=== PATIENT | male | born 2000 | race Caucasian/White ===

== ENCOUNTER 2024-04-26 19:48 | Emergency (ER) | payer OTHER, SELFPAY ==
--- NOTE | ~2024-04-26 | XR_ITS ---
EXAMINATION: XR CHEST CLINICAL INFORMATION: Cough for weeks. COMPARISON: None available. TECHNIQUE: 2 views of the chest were obtained. FINDINGS: Normal appearance of the cardiomediastinal structures. No effusions or pneumothoraces. No focal pulmonary consolidation. Normal pattern of pulmonary vasculature. No suspicious skeletal lesions identified. XR/XR chest 2V IMPRESSION: No cardiopulmonary abnormalities. Lungs clear. Electronically signed by: Lance Armstrong MD 04/27/2024 12:02 AM LUCIO
[2024-04-26 19:57] VITALS: BP 105/56; PULSE 74; RESP 18; TEMP 36.3; O2SAT 98; BMI 19.0
--- NOTE | 2024-04-26 20:00 | ED.URI ---
HPI - URI/Sore Throat General Chief Complaint: Upper Respiratory Symptoms Stated Complaint: cough Time Seen by Provider: 04/27/24 04:01 Source: patient Mode of arrival: ambulatory Limitations: no limitations History of Present Illness ED Provider: RUDY DELGADO Narrative: 24 yo male with no sig PMH just completed zpack from urgent care - still has cough, mucous subjective fevers. He does smoke. Has used albuterol inhaler with some relief. No sick contacts, travel, exposures or any other reason to get ill per his reports. He came in as he thought he has pneumonia. MD elicited complaint: fever and cough Onset (ago): week(s) (2) Consistency: intermittent Severity: moderate Description of mucous: yellow Able to tolerate fluids by mouth: Yes Exacerbating factors: other (coughing) Relieving factors: nothing Associated symptoms: fever, chills, cough and shortness of breath Treatments prior to arrival: antibiotics Related Data Previous Rx's ?Medication ?Instructions ?Recorded amoxicillin 875 mg-potassium 1 tab PO BID #13 tabs 04/27/24 clavulanate 125 mg tablet prednisone 20 mg tablet 40 mg (2 x 20 mg) PO DAILY 4 days 04/27/24 #8 tabs Allergies Allergy/AdvReac Type Severity Reaction Status Date / Time No Known Allergies Allergy Verified 04/26/24 19:58 [No Known Allergies*] Review of Systems Review of Systems: Constitutional : pos Fever, pos Chills ENT/Mouth : No Hoarseness, No sore throat, No Rhinorrhea Eyes: No Redness, No Discharge, No Vision Changes Cardiovascular : No Chest Pain, positive SOB, positive Dyspnea on Exertion, No Edema Respiratory : positive Cough, No Sputum, positive Wheezing, Gastrointestinal : No Nausea, No Vomiting, No Diarrhea, No abdominal Pain Genitourinary : No Dysuria, No Hematuria Musculoskeletal : No joint pain, No Myalgias Skin : No rash Neuro : No Weakness, No Numbness, No Headache Psych : No anxiety, depression All other systems reviewed and are negative [facility] Past Medical History Medical History No pertinent past medical history Social History Social History (Updated 04/27/24 @ 04:47 by Nabila Brar DO) Patient Tobacco Use Status: Current everyday Tobacco user Physical Exam Vital Signs: Vital Signs: Last Vital Signs Temp 98.4 F 04/27/24 02:19 Pulse 57 04/27/24 02:19 Resp 16 04/27/24 02:19 BP 119/67 04/27/24 02:19 Pulse Ox 99 04/27/24 02:19 O2 Del Method Room Air 04/27/24 02:19 BMI result Body Mass Index 19.0 Appearance: Alert. Oriented X3. No acute distress. Eyes: Pupils equal, round and reactive to light. ENT: Pharynx normal. Neck: Normal inspection. Neck supple. CVS: Normal heart rate and rhythm. Pulses normal. Respiratory: No respiratory distress. Breath sounds mild anterior rhonchi Abdomen: Soft and nontender. Skin: Skin warm and dry. Normal skin color. Normal skin turgor. Extremities: No lower extremity edema. No calf ttp Neuro: Oriented X 3. No motor deficit. No sensory deficit. Course Course Course Narrative: This is a Rapid Medical Examination (RME) performed by Shad Bliss PA-C in triage. Full HPI, ROS, assessment and treatment plan per primary provider in the Main ED. 24 yo male here for eval of cough x weeks. seen at last week, discharged w/ zpak which he completed 2-3 days ago. reports continued symptoms despite treatment. reports rib pain on deep inspiration d/t coughing. intermittent fever. Plan: viral swabs, CXR Medical Decision Making Medical Decision Making [facility] Narrative: 24 yo male with no sig PMH here with c/o URI symptoms cough fevers wheezing with no response to azithromycin at this time will obtain labs, CXR and likely treat for bronchitis with augmentin and prednisone. He has no resp distress and still has inhaler at home Differential Diagnosis Differential Diagnoses: The differential diagnosis associated with the presentation includes bronchitis, pneumonia Admission/Observation Consideration of admission/observation: Escalation of care including admission/observation considered not toxic well hydrated Lab Data [facility] Lab Attestation statement: I reviewed the patient's lab results. Labs: Lab Results 04/26/24 Range/Units 20:29 Influenza Type A (PCR) NEGATIVE (Negative) Influenza Type B (PCR) NEGATIVE (Negative) RSV RNA Qual (PCR) NEGATIVE (Negative) SARS-CoV-2 RNA (RT-PCR) NEGATIVE (Negative) Independent Interpretation I performed an independent interpretation of an: Plain X-Ray (normal ) Radiology Impression Discussion of test interpretation with radiology: I have reviewed the radiologist's reading. Prescription Management I considered prescription management with: Antibiotic Discharge Plan Discharge Clinical Impression: Bronchitis Patient Disposition: Home, Self-Care Instructions: Acute Bronchitis (ED) Additional Instructions: chest xray normal swabs negative continue to use albuterol inhaler return for any worsening symptoms, pain, difficulty breathing, unable to take medications or any other concerns On amoxicillin-clavulanate, softer bowel movements are to be expected. Call your provider if you move your bowels more than 4 times a day, your bowel movements are almost all liquid, or you get a rash.? Prescriptions: New amoxicillin-pot clavulanate 875-125 mg tablet 1 tab PO BID Qty: 13 0RF prednisone 20 mg tablet 40 mg PO DAILY 4 Days Qty: 8 0RF Print Language: Chadian
[2024-04-26 21:22] LABS: Influenza A PCR NEGATIVE (Negative); Influenza B PCR NEGATIVE (Negative); Resp Syncy Virus RNA Qual PCR NEGATIVE (Negative); SARS COV2 PCR INHOUSE NEGATIVE (Negative)
[2024-04-27 02:19] VITALS: BP 119/67; PULSE 57; RESP 16; TEMP 36.9; O2SAT 99
[2024-04-27] MEDS: predniSONE 20 MG TABLET 40 MG PO (05:03)
[2024-04-27] MEDS: Amoxicillin/Potassium Clav 875 MG TABLET PO (05:03)
[2024-04-27 05:13] VITALS: BP 119/67; PULSE 57; RESP 16; TEMP 36.9; O2SAT 99
== END 2024-04-27 05:14 | disposition home or self-care (01) ==
PROVIDERS: Physician Assistant Medical; Emergency Provider Emergency Medicine
DX: J40 Bronchitis, not specified as acute or chronic (principal); R05.9 Cough, unspecified; Z03.818 Encounter for observation for suspected exposure to other biological agents ruled out
CPT/HCPCS: 0241U; 71046; 99282; 99283

== ENCOUNTER 2024-10-09 20:16 | Emergency (ER) | payer OTHER, SELFPAY ==
--- NOTE | ~2024-10-09 | XR_ITS ---
CLINICAL HISTORY: tenderness deformity over 5th metacarpal --- Additional Notes or Special Instructio ns: punched wall 4 view right hand Comparison: None Findings: There is a transverse mildly comminuted fracture through the distal shaft of the 5th metacarpal. There is significant volar angulation of the distal fragment measuring 35 degrees. Fracture is nondisplaced. No significant arthritic change. No erosions. No radiopaque foreign body. IMPRESSION: Transverse, angulated fracture through the distal shaft of the 5th metacarpal. This document has been electronically signed by: Carlito Perez MD on 10/09/2024 21:06:18
[2024-10-09 20:19] VITALS: BP 116/72; PULSE 98; RESP 16; TEMP 37.2; O2SAT 95; BMI 19.7
--- NOTE | 2024-10-09 20:19 | ED.GENADULT ---
HPI - General Adult General Chief complaint: Extremity Injury, Upper Stated complaint: right hand inj Time Seen by Provider: 10/09/24 22:01 Source: patient Mode of arrival: ambulatory Limitations: no limitations History of Present Illness ED Provider: Janeth Bone NP HPI narrative: Patient is a 24-year-old male who presents emergency department for evaluation. He is right-hand dominant. He got into a verbal altercation with a co-worker and ultimately punched a wall with his right hand. For the resultant pain in swelling over the 4th and 5th metacarpal. There is a small superficial laceration over the 5th MCP. No active bleeding. No use of anticoagulants or known coagulation disorders. Denies numbness or tingling. Reports last tetanus vaccination likely greater than 5 years. Related Data Previous Rx's ?Medication ?Instructions ?Recorded amoxicillin 875 mg-potassium 1 tab PO BID #13 tabs 04/27/24 clavulanate 125 mg tablet prednisone 20 mg tablet 40 mg (2 x 20 mg) PO DAILY 4 days 04/27/24 #8 tabs Allergies Allergy/AdvReac Type Severity Reaction Status Date / Time No Known Allergies Allergy Verified 10/09/24 20:24 [No Known Allergies*] Review of Systems Review of Systems: Yes all other systems are reviewed and are negative PMFSH Past Medical History Attestation statement: The following information was validated with the patient. Source: old records reviewed Medical History No pertinent past medical history Social History Social History (Updated 04/27/24 @ 04:47 by Nabila Brar DO) Patient Tobacco Use Status: Current everyday Tobacco user Smoked in Last 30 Days: Yes Use of substances other than those prescribed or required for medical reasons: Yes Substance Use Type: Marijuana Advance Directives: No Advance Directives Information Provided: Yes Do you have a plan to hurt others: No Plan Physical Exam ED Vital Signs: Vital Signs - 24 hr 10/09/24 20:19 Temperature 98.9 F Pulse Rate 98 Respiratory Rate 16 Blood Pressure 116/72 Pulse Oximetry 95 Oxygen Delivery Method Room Air BMI result Body Mass Index 19.7 Appearance: Alert.?Oriented to person, place and time. No acute distress.?Normal affect. CVS: Heart sounds normal. Normal heart rate and rhythm.? Pulses normal.?? Respiratory: No respiratory distress.? Lung sounds clear to auscultation bilaterally?? Abdomen: Soft and non-tender. Normoactive bowel sounds. Skin: Skin warm and dry.? Normal skin color.? Extremities: Localized swelling and deformity over right 5th MCP tenderness upon palpation. 2.5 cm superficial laceration over the MCP Neuro: Moves all extremities spontaneously. Sensation intact bilaterally. Ambulates with normal steady gait. Course Course Course Narrative: This is a rapid medical exam performed by Sarita Lei NP: Additional HPI, ROS, PE not included below will be deferred to primary provider. Patient is a 24-year-old right hand dominant male presenting with complaint of right hand pain after getting into an argument with a co-worker and punching a wall. Denies numbness/tingling. Denies wrist pain. Tenderness and deformity over 5th metacarpal. Unknown last Tdap. Small laceration over 5th MCP joint. 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 Plan: xray Medications Administered Discontinued Medications Generic Name Dose Route Start Last Admin Trade Name Freq PRN Reason Stop Dose Admin Bacitracin 1 appl 10/09/24 22:26 10/09/24 22:36 Bacitracin Oint 0.9 Gm Packet TOPICAL 10/09/24 22:27 1 appl ONCE ONE Administration Protocol Diphtheria/Tetanus/Acell Pertussis 0.5 ml 10/09/24 20:21 10/09/24 22:10 Diphth,Pertus(Acell),Tet Adult 0.5 Ml Syringe IM 10/09/24 20:22 0.5 ml .ONCE ONE Administration Cefazolin Sodium/Dextrose 2 gm in 50 mls @ 100 mls/hr 10/09/24 22:21 10/09/24 23:06 Ancef IV 10/09/24 22:50 Infused ONCE ONE Infusion Procedures Orthopedic Splinting/Casting Injury #1: Side: left Upper Extremity Injury Location: hand Upper Extremity Immobilizer: ulnar gutter Medical Decision Making Medical Decision Making MDM Narrative: 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 Has localized swelling over the dorsum of the hand, deformity and ecchymosis, superficial laceration which was cleansed with normal saline bacitracin applied and a clean dry dressing. XR revealing fracture to the distal 5th metacarpal. Reviewed this x-ray imaging with my attending Dr. Saleh, advises based on fracture presentation would not attempt manual reduction, recommend splinting and outpatient follow-up. He will receive a dose of IV cefazolin in the emergency department, will update his tetanus vaccination. Was placed in a an ulnar gutter splint remained neurovascularly intact distally after application. All questions were answered. Reviewed outpatient follow-up with Orthopedics, worrisome signs and symptoms that would warrant re-evaluation in the emergency department. Stable for discharge Differential Diagnosis Differential Diagnoses: The differential diagnosis associated with the presentation includes (Fracture, dislocation, sprain) Admission/Observation Consideration of admission/observation: Escalation of care including admission/observation considered Independent Interpretation I performed an independent interpretation of an: Plain X-Ray (See narrative above) Radiology Impression Discussion of test interpretation with radiology: I have reviewed the radiologist's reading. Radiologist Impression: 4 view right hand Comparison: None Findings: There is a transverse mildly comminuted fracture through the distal shaft of the 5th metacarpal. There is significant volar angulation of the distal fragment measuring 35 degrees. Fracture is nondisplaced. No significant arthritic change. No erosions. No radiopaque foreign body. IMPRESSION: Transverse, angulated fracture through the distal shaft of the 5th metacarpal. External Record Review External record reviewed: Outpatient record Prescription Management I considered prescription management with: Pain Medication Discharge Plan Discharge Clinical Impression: Open fracture of metacarpal bone of right hand Qualifiers: Encounter type: initial encounter Metacarpal bone: fifth Metacarpal location: neck Patient Disposition: Home, Self-Care Instructions: Hand Fracture (ED), R.I.C.E. Treatment (ED) Additional Instructions: You can take ibuprofen 200 mg, 3 tablets (600mg) every 6-8 hours as needed for pain, in addition to Tylenol 500 mg, 2 tablets (1,000mg) every 4-6 hours as needed for pain, but not to exceed 3 doses daily (3,000mg).? Be sure to apply ice for 10-15 minutes 4-6 times daily Contact the orthopedic office first thing tomorrow morning to arrange for a follow-up visit. The splint must remain in place at all times it can not get wet. If it feels as though there is significant swelling, pressure tightness beneath the splint, you should seek re-evaluation. If you noticed discoloration to the toes numbness tingling or cold sensation you should seek re-evaluation. Prescriptions: No Action amoxicillin-pot clavulanate 875-125 mg tablet 1 tab PO BID Qty: 13 0RF prednisone 20 mg tablet 40 mg PO DAILY 4 Days Qty: 8 0RF Referrals: Kathie Montanez MD [Physician] - Print Language: Barbadian
--- OUTSIDE RECORDS SUMMARY | 2024-10-09 21:47 | XMS_ITS | Clinical Summary ---
Author Organization [facility] Address [address] [place] [id number] Phone Care Team Providers Care Drum Sander Setter Name Role Phone Unavailable Primary Care Provider Unavailabl e Immunizations Immunization Administration Dates Next Due DTaP 02/09/2003, 9,1998, 999,1998 Hep B, ped/adol 1998,1998,1998 Hib (PRP-T) 05/29/1999, 9,1998, 998 IPV 02/09/2003, 9,1998, 998 Influenza, injectable, quadrivalent 02/20/2010 MMR 07/04/2002,03/14/1999 Meningococcal Conj (Menactra) MCV4P 01/01/2015,0 02/20/2010 Tdap 02/20/2010 Varicella 03/28/2008,10/13/1999 Family History Relation Name Status Comments Father Alive prescription dr quiñonez abuse age: 42 Father's Brother Alive Father's Sister Alive healthy X 1 Maternal Grandfather CAD [place] diagnosed with HEART DISEASE NOS Maternal Grandmother Alive healthy Mother Alive healthy age: 50 Other Alive Siblings: healt hy diagnosed with Asthma, unspecified Paternal Grandfather esophag eal [place] diagnosed with MALIGNANT NEOPLASM NOS Paternal Grandmother Alive Social History Tobacco Use Types Packs/Day Years Used Date Smoking Tobacco: Never Assessed Sex and Gender Information Value Date Recorded Sex Assigned at Not on file Legal Sex Male 6:09 PM EDT Gender Identity Not on file Sexual Orientation Not on file Last Filed Vital Signs Vital Sign Reading Time Taken Comments Blood Pressure 128/76 08/06/2016 12:00 AM EST Pulse 64 10/15/2014 12:00 AM EDT Temperature 37 ??C (98.6 ??F) 08/06/2016 12:00 AM EST Respiratory Rate - - Oxygen Saturation 98% 10/15/2014 12:00 AM EDT Inhaled Oxygen Concentration - - Weight 63.5 kg (140 lb) 08/06/2016 12:00 AM EST Height 179.1 cm (5' 10.5 ) 08/06/2016 12:[address] Body Mass Index 19.8 08/06/2016 12:00 AM EST Plan of Treatment Health Maintenance Due Date Last Done Comments HPV Vaccines (1 - Male 3-dose series) 2013 DTaP,Tdap,and Td Vaccines (7 - Td or Tdap) 02/21/2020 02/20/2010, 02/09/2003, 05/29/1999, Additional history exists Influenza Vaccines (#1) 2024 02/20/2010 COVID-19 Vaccine ( season) 2024 Hepatitis B Vaccines Completed 1998, 1998, 1998 HIB Vaccines Completed 05/29/1999, 02/1999, 1998, Additional history exists MMR Vaccines Completed 07/04/2002, 03/14/1999 IPV Vaccines Completed 02/09/2003, 02/20, 1998, Additional history exists Varicella Vaccines Completed 03/28/2008, 10/13/1999 Meningococcal Vaccine Completed 01/01/2015, 010 Hepatitis A Vaccines Aged Out No long er eligible based on patient's age to complete this topic Men B Vaccine Aged Out No longer elig ible based on patient's age to complete this topic Pneumococcal Vaccine Aged Out No long er eligible based on patient's age to complete this topic
--- NOTE | 2024-10-09 21:58 | PC.NURSE ---
This RN assumed pt care @ 2139 Pt a&ox4, no signs of distress Pt reports he punched a wall, has pain around 4/5 when he moves his right hand Plan of care ongoing
[2024-10-09] MEDS: Diphth,Pertus(ACell),Tet Adult 0.5 ML SYRINGE IM (22:10)
--- NOTE | 2024-10-09 22:13 | PC.NURSE ---
Pt medicated per [facility] Plan of care ongoing.
[2024-10-09] MEDS: Bacitracin Oint 0.9 GM PACKET 1 APPL TOPICAL (22:36)
[2024-10-09] MEDS: ceFAZolin Sodium/Dextrose,Iso 2 GM/50 ML PIGGYBACK IV (22:36)
--- NOTE | 2024-10-09 22:39 | PC.NURSE ---
Pt medicated per [facility] Plan of care ongoing.
[2024-10-10 00:27] VITALS: BP 115/84; PULSE 69; RESP 18; TEMP 36.6; O2SAT 98
== END 2024-10-10 00:30 | disposition home or self-care (01) ==
PROVIDERS: Emergency Provider Emergency Medicine Emergency Medical Services
DX: S62.336A Displaced fracture of neck of fifth metacarpal bone, right hand, initial encounter for closed fracture (principal); S61.216A Laceration without foreign body of right little finger without damage to nail, initial encounter; M79.641 Pain in right hand; X79.XXXA Intentional self-harm by blunt object, initial encounter; Y93.9 Activity, unspecified; Y92.9 Unspecified place or not applicable; Y99.8 Other external cause status; Z23 Encounter for immunization; F17.210 Nicotine dependence, cigarettes, uncomplicated
CPT/HCPCS: 29130; 73130; 90471; 90715; 96365; 99284; J0690

== ENCOUNTER → 2024-10-09 20:21 | Outpatient (BNV) | payer SELFPAY | PROVIDERS: Visit Provider Radiology Diagnostic Radiology | DX: S62.326A Displaced fracture of shaft of fifth metacarpal bone, right hand, initial encounter for closed fracture (principal) | CPT/HCPCS: 73130 ==

== ENCOUNTER 2024-10-11 | Outpatient (REF) | payer OTHER, SELFPAY ==
--- NOTE | ~2024-10-11 | XR_ITS ---
EXAMINATION: XR HAND, RIGHT CLINICAL INFORMATION: M79.641 - Pain in right hand COMPARISON: October 09, 2024. TECHNIQUE: PA, lateral, and oblique views of the right hand. FINDINGS: Comminuted the fracture with volar angulation distal diaphysis of the fifth metacarpal. No callus formation. Carpal bones are intact with normal alignment. Phalanges are intact with normal alignment. Metacarpals from the first to the fourth are intact. Distal radius and ulna are intact. XR/XR hand RT min 3V IMPRESSION: Nonhealing acute to subacute comminuted volar angulated fracture distal fifth metacarpal. Electronically signed by: Edward Fink MD 10/12/2024 08:56 AM EDT
--- OUTSIDE RECORDS SUMMARY | 2024-12-15 14:31 | XMS_ITS | Encounter Summary ---
Author Organization [facility] Address [address] [place] [id number] Phone Care Team Providers Care Teacher Advisor Name Role Phone Anthony Rodney MD Primary Care Provider [phone] Encounter Details Date Type Department Care Team (Late st Contact Info) Description 11/07/2017 Conversion Encounter [facility] [address] [place] [address] Anthony Rodney MD [address] [place] [address] Social History Tobacco Use Types Packs/Day Years [...] on filedocumented in this encounter Care Teams Teacher Advisor Relationship Specialty Start Date End Date Anthony Rodney MD [address] [place] [address] PCP - General 10/27/17 04/17/24 documented as of this encounter
== END 2024-10-11 00:01 | disposition home or self-care (01) ==
LOC: HO.HOSX
PROVIDERS: Visit Provider Orthopaedic Surgery
DX: M79.641 Pain in right hand (principal)
CPT/HCPCS: 73130; 99202

== ENCOUNTER 2024-10-11 09:35 | Outpatient (AMB) | payer SELFPAY ==
--- NOTE | 2024-10-11 09:50 | A.OFFVIS_ITS ---
Vital Signs 10/11/24 10:00 Height 6 ft Weight 140 lb BMI 19.0 Intake Visit Reasons: FC-OpenFC ofmetacarpal bone of RT hand-DOI 10/09/24 Intake Note: Israel 24 yr old male presents today for a fracture care visit for his right hand injury from DOI: 10/09/24 S/P [facility] ED. Per ED notes, he was involved in a verbal altercation with a co-worker and ultimately punched a wall with his right hand, pain and swelling over the 4th and 5th metacarpal and a small superficial laceration over the 5th MCP. A fracture was confirmed and patient was splinted. Currently states his swelling has improved and is not able to move his pinky. Denies numbness, tingling or locking of any finger. Accompanied by: mother Devika Allergies No Known Allergies [No Known Allergies*] Allergy (Verified 10/11/24 10:00) HPI HPI FC-OpenFC ofmetacarpal bone of RT hand-DOI 10/09/24: Details: Israel is a 24 year old right hand dominant man who presents for a right 5th metacarpal fracture. He says he entered a verbal altercation with a co-worker, and punched a wall in frustration, DOI: 10/09/24. He was seen in the ED where he was splinted. He is here today with his mother. He complains of some pain in his small finger, and says he is not able to move it properly. He does say his swelling has improved He denies any numbness, tingling, locking, or catching. He says he was given IV Abx in the ED, but was unaware that he was discharged with an Abx prescription. According to the ED note he was prescribed Augmentin & Prednisone. He is a smoker of cigarettes & Marijuana. 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 Review of Systems Const All systems reviewed & are unremarkable except as noted in HPI and below Physical Exam Vital Signs: BMI result Body Mass Index 19.0 Const General: cooperative, healthy appearing and no acute distress Orientation/consciousness: patient oriented x3 HEENT Head: Yes normocephalic and Yes atraumatic Eyes EOM: EOMs intact bilaterally Resp Effort & Inspection: normal respiratory effort and able to speak in complete sentences Cardio Jugular venous distension: no JVD Skin General skin exam: turgor normal Rashes: no rashes Neuro General: patient oriented x3 Extrem Other: Evaluation of Right Upper Extremity: The patient is alert, oriented, and in no acute distress Neuro: Median, Ulnar, Radial nerves motor and sensory intact and sensation is normal to the tips of all digits Vascular: Cap refill brisk ROM: Skin: Healing laceration over the dorsl aspect of the 5th MC head General: Ecchymosis & swelling about the ulnar aspect of the hand Most tender over the 5th metacarpal head Tender over the 4th and 5th MCs No tenderness over the wrist joint, snuffbox Radiographs: 3 views of the right were taken and viewed by me today in clinic. They show a distal 5th metacarpal shaft fracture, comminuted with 60 degrees apex dorsal ulnar deformity Psych Appearance: grossly normal Affect: normal affect Attitude: cooperative Assessment & Plan Assessment & Plan (1) Open fracture of fifth metacarpal bone of right hand: Code(s): S62.306B - Unspecified fracture of fifth metacarpal bone, right hand, initial encounter for open fracture Category: Medical Plan Assessment & Plan: 1. Right 5th metacarpal shaft fracture, grade 1 open From a punching injury, DOI: 10/09/24 I educated him about this condition I discussed operative and non-operative treatment options, recommending surgery The patient would like to proceed with surgery He was fitted for a splint today, to be worn until his surgery He will pick up and delivery driver his abx today and start them, augmentin per ED The risks and benefits of operative treatment were discussed with the patient and the patient wishes to proceed with surgery. These risks include, but are not limited to risk of damage to blood vessels, nerves, tendons, infection, recurrence, incomplete relief of preoperative symptoms, persistent pain, possible need for further surgery and the risks associated with regional blocks and anesthesia. I explained the effects of smoking on wound/bone healing, and recommend they stop smoking prior to surgery & while healing. This includes vaping, Marijuana, and other Nicotine products including patches used to help quit. They expressed understanding. The plan is to take the patient to the operating room sometime on 10/12/24 for the following procedures: 1. Right 5th metacarpal fracture I&D, under general 1. Right 5th metacarpal ORIF, under general All of the preoperative paperwork including the consent was reviewed today. All the patient's questions were answered. The patient understands that they will be contacted by our recruiting scheduler soon to schedule this procedure He denies Diabetes, blood thinners, asthma, heart, lung, kidney issues. He says he has a Hx of repeat lung infections, and continues to smoke cigarettes & Marijuana. He denies any past surgical treatment for his lungs Scribed for Kathie Montanez MD by William Toscano, medical technologist generalist, on 10/11/24 at 10:15 AM, EST. Orders: Orders XR hand RT min 3V Today M79.641 - Pain in right hand Medications: Discontinued amoxicillin-pot clavulanate 875-125 mg Discontinued Reason: Patient Completed Course 1 tab PO BID 13 tabs 0RF prednisone Discontinued Reason: Patient Completed Course 40 mg (2 x 20 mg) PO DAILY 4 days 8 tabs 0RF Coding Level of Care Code New Pt Level 4 (14468) Diagnoses Open fracture of fifth metacarpal bone of right hand S62.306B
[2024-10-11 10:00] VITALS: BMI 19.0
--- OUTSIDE RECORDS SUMMARY | 2024-10-11 10:47 | XMS_ITS | Encounter Summary ---
Author Organization [facility] Address [address] [place] [phone] Phone Care Team Providers Care Extruder Operator Horizontal Name Role Phone Anthony Rodney MD Primary Care Provider Encounter Details Date Type Department Care Team (Late st Contact Info) Description 11/07/2017 Conversion Encounter [facility] [address] [place] [address] Anthony Rodney MD [address] [place] [address] Social History Tobacco Use Types Packs/Day Years Used Date Smoking Tobacco: Never Assessed Sex and Gender Information Value Date Recorded Sex Assigned at Not on file Legal Sex Male 6:09 PM EDT Gender Identity Not on file Sexual Orientation Not on file documented as of this encounter Plan of Treatment Not on file documented as of this encounter Visit Diagnoses Not on filedocumented in this encounter Care Teams Extruder Operator Horizontal Relationship Specialty Start Date End Date Anthony Rodney MD [address] [place] [address] PCP - General 10/27/17 04/17/24 documented as of this encounter
--- OUTSIDE RECORDS SUMMARY | 2024-10-11 10:47 | XMS_ITS | Clinical Summary ---
Author Organization [facility] Address [address] [place] [phone] Phone Care Team Providers Care Kennel Operator Name Role Phone Unavailable Primary Care Provider [...] Alive healthy X 1 Maternal Grandfather CAD [place] diagnosed with HEART DISEASE NOS Maternal Grandmother [...]
== END 2024-10-11 10:36 | disposition home or self-care (01) ==
LOC: HO.HOS 09:36
PROVIDERS: Visit Provider Orthopaedic Surgery
DX: S62.306B Unspecified fracture of fifth metacarpal bone, right hand, initial encounter for open fracture (principal)
CPT/HCPCS: 99204

== ENCOUNTER → 2024-10-11 09:37 | Outpatient (BNV) | payer SELFPAY | PROVIDERS: Visit Provider Radiology Diagnostic Radiology | DX: M79.641 Pain in right hand (principal) | CPT/HCPCS: 73130 ==

== ENCOUNTER 2024-10-12 13:22 | Day surgery (SDC) | payer SELFPAY ==
--- NOTE | 2024-10-11 12:19 | P.CONAN_ITS ---
Documented by User: Yana Carlos NP 10/11/24 12:20 HPI - Anesthesia Eval Consult details Narrative: 24yo M for Right 5th Metacarpal ORIF, I&D hand PMFSH Active Problems Active Problems: All Active Problems Open fracture of fifth metacarpal bone of right hand (Acute) Past Medical History Medical History No pertinent past medical history Social History Social History (Updated 10/11/24 @ 10:01 by MIRELLA Long) Patient Tobacco Use Status: Current everyday Tobacco user Tobacco use type: Cigarette Cigarettes Per Day: 3 Use of substances other than those prescribed or required for medical reasons: Yes Substance Use Type: Marijuana Are you DNR?: No Advance Directives: No Advance Directives Information Provided: Yes Poor oral hygiene: No Current occupational status: employed 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 Allergies Allergy/AdvReac Type Severity Reaction Status Date / Time No Known Allergies Allergy Verified 10/11/24 10:00 [No Known Allergies*] Assessment and Plan Assessment Anesthesia Assessment: Chart Reviewed Documented by User: Oliver Santos MD 10/12/24 14:29 PMFSH Past Medical History Medical History No pertinent past medical history Family History Family history of problems with anesthesia: No Surgical History History of Problems with Anesthesia: No Social History Social History (Updated 10/11/24 @ 10:01 by MIRELLA Long) Patient Tobacco Use Status: Current everyday Tobacco user Tobacco use type: Cigarette Cigarettes Per Day: 3 Use of substances other than those prescribed or required for medical reasons: Yes Substance Use Type: Marijuana Are you DNR?: No Advance Directives: No Advance Directives Information Provided: Yes Poor oral hygiene: No Current occupational status: employed 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 Allergies Allergy/AdvReac Type Severity Reaction Status Date / Time No Known Allergies Allergy Verified 10/11/24 10:00 [No Known Allergies*] Exam Airway Mallampati Class: II TM Dist: >3cm Neck ROM: Full Assessment and Plan Assessment Anesthesia Assessment: Anesthesia Plan Discussed Final Anesthetic Review Family History of Problems with Anesthesia: No History of Problems with Anesthesia: No NPO: Yes ASA Class: II Final Preanesthetic Review: No Changes in Pt Med Stat, Meds/Allgs Chart Reviewed, Consent Obtained/Reviewed and Anes Risks/Benef Reviewed Patient Risk: Low Procedure Risk: Low Anesthetic Plan Anesthetic Plan: GA Disposition: Standard PACU
--- OUTSIDE RECORDS SUMMARY | 2024-10-11 12:48 | XMS_ITS | Clinical Summary ---
Author Organization [facility] Address [address] [place] [address] Phone Care Team Providers Care Enrichment Assistant Name Role Phone Unavailable Primary Care Provider [...] Alive healthy X 1 Maternal Grandfather CAD [place] diagnosed with HEART DISEASE NOS Maternal Grandmother [...]
--- OUTSIDE RECORDS SUMMARY | 2024-10-11 12:48 | XMS_ITS | Encounter Summary ---
Author Organization [facility] Address [address] [place] [address] Phone Care Team Providers Care Upholstered Goods Crafter Name Role Phone Anthony Rodney MD Primary Care Provider [phone] Encounter Details Date Type Department Care Team (Late st Contact Info) Description 11/07/2017 Conversion Encounter [facility] [address] [place] [address] Anthony Rodney MD [address] [place] [address] Social History Tobacco Use Types Packs/Day Years [...] on filedocumented in this encounter Care Teams Upholstered Goods Crafter Relationship Specialty Start Date End Date Anthony Rodney MD [address] [place] [address] PCP - General 10/27/17 04/17/24 documented as of this encounter
--- NOTE | ~2024-10-12 | FL_ITS ---
EXAMINATION: FL GUIDANCE ONLY HISTORY: right 5th metacarpal ORIF COMPARISON: Correlation is made with plain films of the right hand dated 10/11/2024. TECHNIQUE: Fluoroscopy time: 32.8 seconds. Cumulative Dose: 0.9604 mGy. DAP: 0.0580 mGym2 Images: 7. FINDINGS: Images demonstrate internal fixation of the previously seen comminuted fracture of the 5th metacarpal neck with a single K wire. Alignment is anatomic. FL/FL guidance in OR IMPRESSION: Fluoroscopy during procedure. Please see procedure report for additional information. Electronically signed by: Anthony Jason MD 10/13/2024 03:29 PM EDT
--- NOTE | 2024-10-12 13:00 | P.OP_ITS ---
Operative Note Operative Note Date of Service: 10/12/24 Narrative: Operative Note Narrative: Preop diagnosis: 1. Right open 5th Metacarpal neck fracture Postop diagnosis: Same Procedure: 1. Right 5th Metacarpal fracture open reduction internal fixation 2. Right open 5th metacarpal fracture I&D of bone 3. Ulnar nerve block Surgeon: Kathie Montanez MD Store Receiving Specialist: Andi CRUZ Anesthesia: General Anesthesia Findings: Metacarpal fracture Implants: 0.054 K-wires times 1 Tourniquet time: None EBL: Minimal Specimen: None Drains: None Complications: None Disposition: Brought to the recovery room in stable condition Plan: Continue outpatient oral antibiotics until finished Follow-up in 10-14 days for a wound check, postop radiographs and for placement in a short-arm cast or splint Anticipate K-wire removal in 4 weeks based on interval bony healing Educate the patient that full fracture healing anticipated in approximately 8-12 weeks. Indications: The patient is 24 years old with an open right 5th metacarpal neck fracture . The risks and benefits of operative treatment, including but not limited to risk of damage to blood vessels, nerves, tendons, infection, recurrence, delayed or nonunion of fracture, persistent pain or numbness, incomplete resolution of preoperative symptoms, or need for further surgery were discussed with the patient and they wished to proceed with surgery. Procedure: Once consent was obtained patient was brought back to the operating suite and placed in the operating table in a supine position. . Perioperative antibiotics and general anesthesia was administered by the anesthesia team. A tourniquet was applied to the proximal aspect of the right upper extremity and the limb was prepped and draped in a standard surgical fashion. The limb was elevated and exsanguinated and the tourniquet inflated to 250 mm of mercury for a total tourniquet time of 11 minutes. The FluoroScan was used during the case to assist with our fracture reduction and placement of all implants. A 1.5 cm longitudinal incision was made centered over the open wound at the right 5th metacarpal neck fracture. The incision was made through the skin to the subcutaneous tissues using a 15. Blade. I then dissected down to the level of the fracture site using tenotomy and iris scissors. An I&D was performed on the fracture site using a small rongeur and a curette. The fracture was then copiously irrigated with normal saline. I then performed an open reduction of the 5th metacarpal fracture. I placed a 0.054 K-wire retrograde through the head of the right 5th metacarpal extending proximally across the fracture site to the base of the metacarpal. Fracture alignment was assessed for both angular and rotational malalignment. Once satisfied with our fracture reduction and implant placement, the K-wires were bent and cut short and pin caps applied. Final fluoroscopic images were then obtained. The wounds were copiously irrigated with normal saline. An ulnar nerve block was then performed by infiltrating about the ulnar nerve at the wrist with some 1% lidocaine with epinephrine for postop pain control. A Sterile dressing and short volar splint was applied. The patient appears to have tolerated the procedure well and with no complications. All digits were well vascularized at the conclusion of the case.
[2024-10-12 14:20] VITALS: BMI 17.9
--- NOTE | 2024-10-12 14:22 | MHC.SHP ---
Pre-Procedural Eval Section A - 24 Hr Update-Section A only Date of Service: 10/12/24 The patient is an INPATIENT: No Changes since office visit: No Cold of Flu in the past 2 weeks, No New Medical Problems, No Changes in Medication and No Patient answered all questions The patient has been examined within 24 hours of the surgical procedure. The History & Physical has been completed within 30 days and I have reviewed it.: Yes Section B - Complete if H&P > 30 days Chief Complaint: Unspecified fracture of fifth metacarpal bone, Allergies: Allergies Allergy/AdvReac Type Severity Reaction Status Date / Time No Known Allergies Allergy Verified 10/11/24 10:00 [No Known Allergies*] Plan I have reviewed the history and physical and performed a pertinent physical examination on my patient. No changes have occurred unless specified. Time Spent With Patient Time: Total time managing care of this patient today ____ minutes.
[2024-10-12 14:30] VITALS: BP 108/68; PULSE 63; RESP 16; TEMP 36.7; O2SAT 97
[2024-10-12 14:42] VITALS: PULSE 58
[2024-10-12] MEDS: Lactated Ringers 1,000 ML 100 ML IVCONT (14:47)
[2024-10-12] MEDS: ceFAZolin Sodium/Dextrose,Iso 2 GM/50 ML PIGGYBACK IV (15:47)
[2024-10-12] MEDS: Acetaminophen 1,000 MG/100 ML PIGGYBACK 400 MG IV (15:54)
[2024-10-12 16:37] VITALS: BP 108/76; PULSE 90; RESP 15; TEMP 36.3; O2SAT 99
[2024-10-12 16:42] VITALS: BP 121/60; PULSE 73; RESP 16; O2SAT 98
[2024-10-12 16:47] VITALS: BP 110/65; PULSE 75; RESP 16; O2SAT 98
[2024-10-12 16:52] VITALS: BP 115/68; PULSE 80; RESP 16; TEMP 36.2; O2SAT 98
== END 2024-10-12 17:04 | disposition home or self-care (01) ==
PROVIDERS: Visit Provider Orthopaedic Surgery
PROC: (CPT 26615; principal; 2024-10-12 15:10)
PROC: (CPT 26615; 2024-10-12 15:10)
DX: S62.336B Displaced fracture of neck of fifth metacarpal bone, right hand, initial encounter for open fracture (principal); M79.641 Pain in right hand; W22.09XA Striking against other stationary object, initial encounter; Y93.89 Activity, other specified; Y92.69 Other specified industrial and construction area as the place of occurrence of the external cause; Y99.9 Unspecified external cause status; F17.210 Nicotine dependence, cigarettes, uncomplicated
CPT/HCPCS: 26615; J0131; J0690; J1100; J2003; J2004; J2250; J2405; J2704; J2795; J3010

== ENCOUNTER → 2024-10-12 13:22 | Outpatient (BNV) | payer SELFPAY | PROVIDERS: Visit Provider Orthopaedic Surgery | DX: S62.336B Displaced fracture of neck of fifth metacarpal bone, right hand, initial encounter for open fracture (principal) | CPT/HCPCS: 11012; 26615 ==

== ENCOUNTER 2024-10-24 | Outpatient (REF) | payer OTHER, SELFPAY ==
--- NOTE | ~2024-10-24 | XR_ITS ---
EXAMINATION: XR HAND 3 OR MORE VIEWS RIGHT HISTORY: M79.641 - Pain in right hand COMPARISON: Comparison is made with the prior examination dated 10/11/2024. FINDINGS: Three views of the right hand are submitted. Osseous mineralization is normal. The patient is status post internal fixation of the previously seen comminuted fracture of the 5th metacarpal neck with a single K wire. Alignment is improved since the prior study. The joint spaces are preserved. The soft tissues are unremarkable. XR/XR hand RT min 3V IMPRESSION: Status post internal fixation of the previously noted comminuted fracture of the 5th metacarpal neck. Electronically signed by: Anthony Jason MD 10/24/2024 02:14 PM EDT
--- OUTSIDE RECORDS SUMMARY | 2024-12-19 13:16 | XMS_ITS | Encounter Summary ---
Author Organization [facility] Address [address] [place] [phone] Phone Care Team Providers Care Rag Grader Name Role Phone Anthony Rodney MD Primary Care Provider [phone] Encounter Details Date Type Department Care Team (Late st Contact Info) Description 11/07/2017 Conversion Encounter [facility] [address] [place] [address] Anthony Rodney MD [address] [place] [address] Social History Tobacco Use Types Packs/Day Years [...] on filedocumented in this encounter Care Teams Rag Grader Relationship Specialty Start Date End Date Anthony Rodney MD [address] [place] [address] PCP - General 10/27/17 04/17/24 documented as of this encounter
== END 2024-10-24 00:01 | disposition home or self-care (01) ==
LOC: HO.HOSX
PROVIDERS: Visit Provider Orthopaedic Surgery
DX: M79.641 Pain in right hand (principal); S62.306B Unspecified fracture of fifth metacarpal bone, right hand, initial encounter for open fracture; W22.01XA Walked into wall, initial encounter; Y93.9 Activity, unspecified; Y92.511 Restaurant or cafe as the place of occurrence of the external cause; Y99.9 Unspecified external cause status
CPT/HCPCS: 73130; 99212

== ENCOUNTER 2024-10-24 13:15 | Outpatient (AMB) | payer SELFPAY ==
--- NOTE | 2024-10-24 13:23 | MHC.OFFVIS ---
Intake Visit Reasons: PO RT 5th MC ORIF/I&D 10/12/24 AR Intake Note: Israel 24 yr old male presents today for her P/O visit for her right 5th MC ORIF & I&D from 10/12/[address] Montanez. Dressing removed, xrays updated and sutures remove. States he feels the metal inside his finger but is doing well over all. Allergies No Known Allergies [No Known Allergies*] Allergy (Verified 10/24/24 13:41) HPI HPI PO RT 5th MC ORIF/I&D 10/12/24 AR: Details: Israel is a 24 year old right hand dominant man who returns S/P right 5th metacarpal fracture I&D & CRPP, DOS: 10/12/24. He says he entered a verbal altercation with a co-worker, and punched a wall in frustration, DOI: 10/09/24. He is here today with his mother. He says he is doing well, but he can feel the metal in his finger. He denies any numbness, tingling, locking, or catching. He has completed his Abx as instructed. He is a smoker of cigarettes & Marijuana. He says he is highly prone to lung infections. He says he is working on reducing his smoking. 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 He is somewhat anxious about being able to see the K-wire today. The pin sites are healing well with no erythema drainage or evidence of infection. Sutures removed and Steri-Strips applied Fracture site minimally tender. Sensation is intact Cap refill is brisk Radiographs: 3 views of the right were taken and viewed by me today in clinic. They show a distal 5th metacarpal shaft fracture with satisfactory fracture alignment and position of all K-wires Psych Appearance: grossly normal Affect: normal affect Attitude: cooperative Assessment & Plan Assessment & Plan (1) Open fracture of fifth metacarpal bone of right hand: Code(s): S62.306B - Unspecified fracture of fifth metacarpal bone, right hand, initial encounter for open fracture Category: Medical Plan Assessment & Plan: 1. Right grade 1 open 5th metacarpal shaft fracture, S/P CRPP & I&D DOS: 10/12/24 From a punching injury, DOI: 10/09/24 The patient appears to be doing well post-operatively I educated him about the post-operative course He was placed in a short arm finger spica cast, to be worn for the next 2 weeks I explained the signs and symptoms of infection, if the patient develops any new or worsening erythema, drainage, pain, or warmth they should contact the clinic or attend the ED. I discussed activity modifications, he is to lift nothing heavier than a cellphone for the next 4 weeks He will perform gentle ROM exercises at home He should avoid any underwater activities I explained the effects of smoking on wound/bone healing, and recommend they stop smoking prior to surgery & while healing. This includes vaping, Marijuana, and other Nicotine products including patches used to help quit. They expressed understanding. 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 Anticipate possible return to work in 3 weeks, after K-wire removal. He will follow up in 2 weeks, with X-rays, 3V R hand, OOP. Anticipate K-wire removal depending on bony healing Scribed for Kathie Montanez MD by William Toscano medical assistant, on 10/24/24 at 1:40 PM, EST. Orders: Orders XR hand RT min 3V Today M79.641 - Pain in right hand Medications: Discontinued amoxicillin-pot clavulanate 875-125 mg Discontinued Reason: Patient Completed Course 1 tab PO Q12H 7 days 14 tabs 0RF Scribe Plan - Not visible on output: Scribed for Kathie Montanez MD by luke Brown scribe, on [ ] at [ ], EST. Coding Level of Care Code Global (24344) Diagnoses Open fracture of fifth metacarpal bone of right hand S62.306B
--- OUTSIDE RECORDS SUMMARY | 2024-10-24 14:33 | XMS_ITS | Encounter Summary ---
Author Organization [facility] Address [address] [place] [address] Phone Care Team Providers Care Yoke Setter Name Role Phone Anthony Rodney MD Primary Care Provider [phone] Encounter Details Date Type Department Care Team (Late st Contact Info) Description 11/07/2017 Conversion Encounter [facility] [address] [place] [address] Anthony Rodney MD [address] [place] [address] Social History Tobacco Use Types Packs/Day Years [...] on filedocumented in this encounter Care Teams Yoke Setter Relationship Specialty Start Date End Date Anthony Rodney MD [address] [place] [address] PCP - General 10/27/17 04/17/24 documented as of this encounter
--- OUTSIDE RECORDS SUMMARY | 2024-10-24 14:33 | XMS_ITS | Clinical Summary ---
Author Organization [facility] Address [address] [place] [address] Phone Care Team Providers Care Cco & President Name Role Phone Unavailable Primary Care Provider [...] Alive healthy X 1 Maternal Grandfather CAD [place] diagnosed with HEART DISEASE NOS Maternal Grandmother [...]
== END 2024-10-24 14:27 | disposition home or self-care (01) ==
LOC: HO.HOS 13:16
PROVIDERS: Visit Provider Orthopaedic Surgery
DX: S62.306B Unspecified fracture of fifth metacarpal bone, right hand, initial encounter for open fracture (principal)
CPT/HCPCS: 99024

== ENCOUNTER → 2024-10-24 13:17 | Outpatient (BNV) | payer SELFPAY | PROVIDERS: Visit Provider Radiology Diagnostic Radiology | DX: M79.641 Pain in right hand (principal) | CPT/HCPCS: 73130 ==

== ENCOUNTER 2024-11-07 08:42 | Outpatient (REF) | payer OTHER, SELFPAY ==
--- NOTE | ~2024-11-07 | XR_ITS ---
CLINICAL HISTORY: M79.641 - Pain in right hand Right hand three views Comparison: 10/24/2024 Findings: Status post 5th metacarpal fracture fixation. Fracture and pin are unchanged from prior study. No new bony abnormality identified. Impression: Status post 5th metacarpal fracture fixation This document has been electronically signed by: Magdi Gill MD on 11/07/2024 21:39:53
== END 2024-11-07 08:43 | disposition home or self-care (01) ==
LOC: HO.HOSX 08:42
PROVIDERS: Visit Provider Orthopaedic Surgery
DX: M79.641 Pain in right hand (principal); S62.306D Unspecified fracture of fifth metacarpal bone, right hand, subsequent encounter for fracture with routine healing; Z98.890 Other specified postprocedural states
CPT/HCPCS: 73130; 99212

== ENCOUNTER 2024-11-07 14:45 | Outpatient (AMB) | payer OTHER, SELFPAY ==
--- NOTE | 2024-11-07 14:59 | A.OFFVIS_ITS ---
Intake Visit Reasons: PO RT 5th MC ORIF/I&D 10/12/24 AR Intake Note: Israel 24 yr old male presents today for her P/O visit for her right 5th MC ORIF & I&D from 10/12/[address] Montanez. He is here for K- wire (pins) removal. Allergies No Known Allergies [No Known Allergies*] Allergy (Verified 11/07/24 15:14) HPI HPI PO RT 5th MC ORIF/I&D 10/12/24 AR: Details: Israel is a 24 year old right hand dominant man who returns S/P right 5th metacarpal fracture I&D & CRPP, DOS: 10/12/24. He says he entered a verbal altercation with a co-worker, and punched a wall in frustration, DOI: 10/09/24. He is here today with his mother. He says he is doing well in regards to his fracture. He denies any numbness, tingling, locking, or catching. He is a smoker of cigarettes & Marijuana. He says he is working on reducing his smoking. He says he has been smoking more frequently in the last few weeks since his grandmother . He says he is highly prone to lung infections. 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 He is somewhat anxious about being able to see the K-wire today. The pin sites are healing well with no erythema drainage or evidence of infection. K-wire removed today in clinic, which he tolerated well Fracture site non-tender. small finger PIP joint ROM: 0-90 degrees Mild stiffness in ring, middle, and index fingers Fifth MCP joint was at 90 degrees with the K-wire in place. Patient is now starting to work on extension. Sensation is intact Cap refill is brisk Radiographs: 3 views of the right were taken and viewed by me today in clinic. They show a distal 5th metacarpal shaft fracture with satisfactory fracture alignment and position of single K-wire. Only a small amount of interval bony healing. Psych Appearance: grossly normal Affect: normal affect Attitude: cooperative Assessment & Plan Assessment & Plan (1) Open fracture of fifth metacarpal bone of right hand: Code(s): S62.306B - Unspecified fracture of fifth metacarpal bone, right hand, initial encounter for open fracture Category: Medical Plan Assessment & Plan: 1. Right grade 1 open 5th metacarpal shaft fracture, S/P CRPP & I&D DOS: 10/12/24 From a punching injury, DOI: 10/09/24 K-wire removed: 11/07/24 The patient appears to be doing well post-operatively I educated him about the post-operative course He was fitted for a velcro wrist splint, to be worn when out of the house with daily activities for the next 4 weeks I explained the signs and symptoms of infection, if the patient develops any new or worsening erythema, drainage, pain, or warmth they should contact the clinic or attend the ED. I discussed activity modifications, he is to lift nothing heavier than a cellphone for the next 2 weeks He will perform gentle ROM exercises at home He should avoid any underwater activities for the next 5 days I explained the effects of smoking on wound/bone healing, and recommend they stop smoking prior to surgery & while healing. This includes vaping, Marijuana, and other Nicotine products including patches used to help quit. They expressed understanding. I ordered OT hand therapy to work on ROM exercises. 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 He was given a note to remain out of work until his next appointment in 3-4 weeks. He will follow up in 3-4 weeks for a ROM check, with X-rays, 3V R hand, OOP. Scribed for Kathie Montanez MD by William Toscano, medical review coordinator, on 11/07/24 at 3:10 PM, EST. Orders: Orders OT Evaluation and Treatment Today S62.306B - Unspecified fracture of fifth metacarpal bone, right hand, initial encounter for open fracture XR hand RT min 3V Today M79.641 - Pain in right hand Medications: Discontinued hydrocodone-acetaminophen 5-325 mg Partial Fill upon patient request. Discontinued Reason: Patient Completed Course 1 tab PO Q6H PRN 20 tabs 0RF pain Coding Level of Care Code Global (42289) Diagnoses Open fracture of fifth metacarpal bone of right hand S62.306B
--- OUTSIDE RECORDS SUMMARY | 2024-11-07 16:03 | XMS_ITS | Encounter Summary ---
Author Organization [facility] Address [address] [place] [address] Phone Care Team Providers Care Boiler Service Technician Name Role Phone Anthony Rodney MD Primary Care Provider [phone] Encounter Details Date Type Department Care Team (Late st Contact Info) Description 11/07/2017 Conversion Encounter [facility] [address] [place] [address] Anthony Rodney MD [address] [place] [address] Social History Tobacco Use Types Packs/Day Years [...] on filedocumented in this encounter Care Teams Boiler Service Technician Relationship Specialty Start Date End Date Anthony Rodney MD [address] [place] [address] PCP - General 10/27/17 04/17/24 documented as of this encounter
--- OUTSIDE RECORDS SUMMARY | 2024-11-07 16:03 | XMS_ITS | Clinical Summary ---
Author Organization [facility] Address [address] [place] [address] Phone Care Team Providers Care Data Warehouse Architect Name Role Phone Unavailable Primary Care Provider [...] Alive healthy X 1 Maternal Grandfather CAD [place] diagnosed with HEART DISEASE NOS Maternal Grandmother [...]
== END 2024-11-07 15:42 | disposition home or self-care (01) ==
PROVIDERS: Visit Provider Orthopaedic Surgery
DX: S62.306B Unspecified fracture of fifth metacarpal bone, right hand, initial encounter for open fracture (principal)
CPT/HCPCS: 99024

== ENCOUNTER → 2024-11-07 14:45 | Outpatient (BNV) | payer SELFPAY | PROVIDERS: Visit Provider Radiology Diagnostic Radiology | DX: S62.396D Other fracture of fifth metacarpal bone, right hand, subsequent encounter for fracture with routine healing (principal) | CPT/HCPCS: 73130 ==

== ENCOUNTER 2024-12-05 08:49 | Outpatient (REF) | payer OTHER, SELFPAY ==
--- NOTE | ~2024-12-05 | XR_ITS ---
EXAMINATION: XR HAND, RIGHT CLINICAL INFORMATION: M79.641 - Pain in right hand COMPARISON: None available. TECHNIQUE: PA, lateral, and oblique views of the right hand. FINDINGS: K wire has been removed from the fifth metacarpal. Healing fifth metacarpal fracture noted in gross anatomical alignment. Fracture lines are less distinct, somewhat sclerotic, and there is some bridging bony callus. No additional bony or soft tissue abnormalities. XR/XR hand RT min 3V IMPRESSION: 1. Removal of K wire from fifth metacarpal fracture. 2. Stable healing fifth metacarpal fracture in anatomic alignment. Electronically signed by: Mitchel Burkett MD 12/05/2024 01:43 PM EDT
--- OUTSIDE RECORDS SUMMARY | 2024-12-06 09:21 | XMS_ITS | Encounter Summary ---
Author Organization [facility] Address [address] [place] [phone] Phone Care Team Providers Care Log Peeler Name Role Phone Anthony Rodney MD Primary Care Provider [phone] Encounter Details Date Type Department Care Team (Late st Contact Info) Description 11/07/2017 Conversion Encounter [facility] [address] [place] [address] Anthony Rodney MD [address] [place] [address] Social History Tobacco Use Types Packs/Day Years [...] on filedocumented in this encounter Care Teams Log Peeler Relationship Specialty Start Date End Date Anthony Rodney MD [address] [place] [address] PCP - General 10/27/17 04/17/24 documented as of this encounter
== END 2024-12-05 08:50 | disposition home or self-care (01) ==
LOC: HO.HOSX 08:49
PROVIDERS: Visit Provider Orthopaedic Surgery
DX: M79.641 Pain in right hand (principal); S62.306B Unspecified fracture of fifth metacarpal bone, right hand, initial encounter for open fracture
CPT/HCPCS: 73130; 99212

== ENCOUNTER 2024-12-05 13:25 | Outpatient (AMB) | payer OTHER, SELFPAY ==
--- NOTE | 2024-12-05 14:01 | MHC.OFFVIS ---
Intake Visit Reasons: PO - RT 5th MC ORIF/I&D 10/12/24 AR Intake Note: Israel is a 24 year old right hand dominant male presents today for a post operative appointment for his right hand s/p Right 5Th metacarpal ORIF & I&D 10/12/24. At his last visit his pins were removed and he was given a velcro wrist brace to be worn for the following 4 weeks and a order for P.T. Patient states he is doing well and has good ROM. He has no concerns today. Allergies No Known Allergies [No Known Allergies*] Allergy (Verified 12/05/24 14:01) HPI HPI PO - RT 5th MC ORIF/I&D 10/12/24 AR: Details: Israel is a 24 year old right hand dominant man who returns S/P right 5th metacarpal fracture I&D & CRPP, DOS: 10/12/24. He says he entered a verbal altercation with a co-worker, and punched a wall in frustration, DOI: 10/09/24. He is here today with his mother. He says he is doing well in regards to his fracture. He has been attending OT hand therapy and working on ROM exercises at home. He has no complaints today. He denies any numbness, tingling, locking, or catching. He is a smoker of cigarettes & Marijuana. He says he is working on reducing his smoking. He says he has been smoking more frequently in the last few weeks since his grandmother . He says he is highly prone to lung infections. 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 Review of Systems Const All systems reviewed & are unremarkable except as noted in HPI and below Physical Exam Const General: no acute distress and alert Orientation/consciousness: patient oriented x3 Neuro General: patient oriented x3 Extrem Other: Evaluation of Upper Extremity: The patient is alert, oriented, and in no acute distress Neuro: Median, Ulnar, Radial nerves motor and sensory intact and sensation is normal to the tips of all digits Vascular: Cap refill brisk ROM: He can make a fist and extend all his digits Slight extensor lag of the small finger, of ~3 degrees Fracture site non-tender Radiographs: 3 views of the right were taken and viewed by me today in clinic. They show a distal 5th metacarpal shaft fracture with satisfactory fracture alignment and some evidence of interval bony healing Psych Appearance: grossly normal Affect: normal affect Attitude: cooperative Assessment & Plan Assessment & Plan (1) Open fracture of fifth metacarpal bone of right hand: Code(s): S62.306B - Unspecified fracture of fifth metacarpal bone, right hand, initial encounter for open fracture Category: Medical Plan Assessment & Plan: 1. 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 He was given a note to return to work without restrictions effective 12/06/24 He will follow up prn Scribed for Kathie Montanez MD by luke Brown scribe, on 12/05/24 at 2:15 PM, EST. Orders: Orders XR hand RT min 3V Today M79.641 - Pain in right hand Scribe Plan - Not visible on output: Scribed for Kathie Montanez MD by William Toscano medical education coordinator, on [ ] at [ ], EST. Coding Level of Care Code Global (80667) Diagnoses Open fracture of fifth metacarpal bone of right hand S62.306B
--- OUTSIDE RECORDS SUMMARY | 2024-12-05 15:18 | XMS_ITS | Encounter Summary ---
Author Organization [facility] Address [address] [place] [phone] Phone Care Team Providers Care Bell Neck Hammerer Name Role Phone Anthony Rodney MD Primary Care Provider [phone] Encounter Details Date Type Department Care Team (Late st Contact Info) Description 11/07/2017 Conversion Encounter [facility] [address] [place] [address] Anthony Rodney MD [address] [place] [address] Social History Tobacco Use Types Packs/Day Years [...] on filedocumented in this encounter Care Teams Bell Neck Hammerer Relationship Specialty Start Date End Date Anthony Rodney MD [address] [place] [address] PCP - General 10/27/17 04/17/24 documented as of this encounter
== END 2024-12-05 14:23 | disposition home or self-care (01) ==
LOC: HO.HOS 13:26
PROVIDERS: Visit Provider Orthopaedic Surgery
DX: S62.306B Unspecified fracture of fifth metacarpal bone, right hand, initial encounter for open fracture (principal)
CPT/HCPCS: 99024

== ENCOUNTER → 2024-12-05 13:34 | Outpatient (BNV) | payer OTHER, SELFPAY | PROVIDERS: Visit Provider Radiology Diagnostic Radiology | DX: S62.396D Other fracture of fifth metacarpal bone, right hand, subsequent encounter for fracture with routine healing (principal) | CPT/HCPCS: 73130 ==

== ENCOUNTER 2024-12-08 14:23 | Outpatient (RCR) | payer OTHER, SELFPAY ==
--- NOTE | 2024-11-22 08:44 | MHC.OT.EP ---
[address] [phone] Occupational Therapy Plan of Care Patient Name: Israel Shaffer Date of Evaluation: 11/21/24 Diagnosis: R 5th metacarpal fracture R hand Pain Location: ulnar sided of R hand Pain Score: 1 Pain Scale Used: Numeric (0 - 10) Aggravating Factors: Alleviating Factors: Assessment: Pt is a 24 yr old R hand dominant male who fracture his 5th metacarpal of his R hand on 10/11 when he punched a steel door. He had surgery on 10/12; pins were removed on 11/[address] Montanez office and pt. was given exercises to perform at home. 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 He reports improvement in ROM and strength in his R hand since his initial injury. He presents today w/ decreased ROM, strength, and dexterity of his R hand. He would benefit from skilled OT therapy to address these deficits and increase his functional use of his dominant hand, Frequency and Duration: The patient will be seen 2xs a week for 6 weeks Short Term Goals: Pt will make a composite fist Pts 5th digit extension lag will be 0 Pt will be complaint w/ his HEP Mcc Goals: Pt will RPLOF Pt will increase R hand sheet folder to 70 lbs Pt will use his R wrist/ hand to hold/ sheet folder grocery bags w/ out difficulty Treatment Plan: Therapeutic Exercise Therapeutic Activity Home Exercise Program Splinting Neuro Re-ed Patient Education Desensitization/Sensory Re-ed Edema Control ADL Training Ultrasound NMES Paraffin Fluidotherapy MHP Joint Mobilization Soft Tissue Mobilization Kinesiotaping Electronically Signed By: Violet Olvera OTR/L Please Sign and return to therapist. Thank you once again for your referral.
--- NOTE | 2024-12-08 15:04 | MHC.OT.DC ---
[address] [phone] F: [phone] Occupational Therapy Discharge Note Patient Name: Israel Shaffer Provider: Kathie Montanez Diagnosis: R 5th metacarpal fracture R hand Date of Surgery: 10/12/24 Date of Evaluation: 11/21/24 Date of Discharge: Treatments to Date: 5 Cancellations to Date: No Shows to Date: Discharge Status: Achieved Goals Improved Function Independent with HEP Discharge Summary: Patient is d/c'd from skilled OT as he achieved all of his goals and has returned to his PLOF. Thank you for your referral, he was a pleasure to work with. Electronically Signed By: Yana Ang OTR/L, CLT Reviewed/agree with student documentation: Therapist: Please Sign and return to therapist, thank you for your referral.
== END 2024-12-08 15:05 | disposition home or self-care (01) ==
LOC: HO.OT 14:23
PROVIDERS: PCP Family Medicine; Visit Provider Orthopaedic Surgery
DX: S62.306D Unspecified fracture of fifth metacarpal bone, right hand, subsequent encounter for fracture with routine healing (principal)
CPT/HCPCS: 97110; 97140; 97165; 97535